=== PATIENT | male | born 1985 | race African-American/Black ===

== ENCOUNTER 2017-03-03 09:33 | Emergency (ER) | payer MEDICAID ==
[~2017-03-03] VITALS: Ht 175.3 cm; Wt 77.0 kg
[2017-03-03] MEDS ORDERED: IBUPROFEN 800MG TABLET PO ONE (11:45)
[2017-03-03] MEDS ORDERED: TRAMADOL 50MG TABLET PO ONE (11:45)
[2017-03-03 13:28] VITALS: BP 138/83
== END 2017-03-03 15:05 | disposition home or self-care (01) ==
LOC: ER 09:47
DX: M25.562 Pain in left knee (principal); M25.512 Pain in left shoulder; V49.9XXA Car occupant (driver) (passenger) injured in unspecified traffic accident, initial encounter; Y93.89 Activity, other specified; Y99.8 Other external cause status; Y92.89 Other specified places as the place of occurrence of the external cause
CPT/HCPCS: 72148; 73562; 99284; Z7610

== ENCOUNTER 2022-05-22 02:57 | Emergency (ER) | payer MEDICAID ==
[~2022-05-22] VITALS: Ht 175.3 cm; Wt 59.0 kg
[2022-05-22] MEDS ORDERED: LIDOCAINE HCL/EPINEPHRINE 1%-EPI 1:100,000 20 ML VIAL INFIL ONE (05:15)
[2022-05-22 05:45] VITALS: BP 119/82
[2022-05-22] MEDS ORDERED: IBUPROFEN 400MG TABLET PO ONE (05:45)
[2022-05-22] MEDS ORDERED: ACETAMINOPHEN WITH CODEINE 300/30MG TABLET PO ONE (05:45)
[2022-05-22] MEDS ORDERED: T3 PO (06:08)
[2022-05-22] MEDS ORDERED: IBUP-2028 PO (06:08)
== END 2022-05-22 06:49 | disposition home or self-care (01) ==
LOC: ER 02:57
DX: S01.01XA Laceration without foreign body of scalp, initial encounter (principal); R51.9 Headache, unspecified; Y08.89XA Assault by other specified means, initial encounter; Y93.89 Activity, other specified; Y92.89 Other specified places as the place of occurrence of the external cause; Y99.8 Other external cause status
CPT/HCPCS: 12001; 70450; 71045; 72125; 99284; J3490

== ENCOUNTER 2022-06-16 17:02 | Emergency (ER) | payer MEDICAID, OTHER ==
[~2022-06-16] VITALS: Ht 160 cm; Wt 72.0 kg
[~2022-06-16 17:02] MED LIST: IBUP-2028 PO; T3 PO
[2022-06-16 17:07] VITALS: BP 105/72
== END 2022-06-16 18:55 | disposition home or self-care (01) ==
LOC: ER 17:02
DX: Z48.02 Encounter for removal of sutures (principal)
CPT/HCPCS: 99281; Z7610